=== PATIENT | male | born 1975 | race Caucasian/White ===

== ENCOUNTER 2017-01-18 16:52 | Emergency (ER) | payer SELFPAY ==
--- NOTE | 2017-01-18 17:33 | ER Document Report ---
ED Medical Screen (RME) - General Chief Complaint: Abdominal Pain Stated Complaint: ABDOMINAL PAIN Time Seen by Provider: 01/18/17 17:32 Notes: Patient states that he has had several urinary tract infections in the last several years. He states she has time they present with lower abdominal pain and blood in the urine. He states he now has no same symptoms for the last couple of days. He states he has seen a urologist with an unremarkable workup. However patient denies cystoscopy. Patient states they were not able to give him a reason why he gets repeat urinary tract infections. TRAVEL OUTSIDE OF THE [place] IN LAST 30 DAYS: No - Related Data Allergies/Adverse Reactions: No Known Allergies Allergy (Verified 01/18/17 16:57) Home Medications: Current Home Medications No Home Medications 01/18/17 [History] Past Medical History - Social History Chew tobacco use (# tins/day): No Frequency of alcohol use: Occasional Drug Abuse: None Renal/ Medical History: Denies: Hx Peritoneal Dialysis Physical Exam - Vital signs Vitals: Temp Pulse Resp Pulse Ox 98.1 F 103 H 12 98 01/18/17 16:57 01/18/17 16:57 01/18/17 16:57 01/18/17 16:57 Course - Vital Signs Vital signs: Temp Pulse Resp BP Pulse Ox 98.1 F 103 H 12 98 01/18/17 16:57 01/18/17 16:57 01/18/17 16:57 01/18/17 16:57
[2017-01-18 18:36] LABS: ABSOLUTE BASOPHILS # (AUTO) 0.1 10^3/uL (0.0-0.2); ABSOLUTE EOSINOPHILS # (AUTO) 0.3 10^3/uL (0.0-0.6); ABSOLUTE LYMPHOCYTES (AUTO) 2.6 10^3/uL (0.5-4.7); ABSOLUTE MONOCYTES (AUTO) 1.3 10^3/uL (0.1-1.4); ABSOLUTE NEUT (AUTO) 6.8 10^3/uL (1.7-8.2); BASOPHILS % (AUTO) 1.3 % (0-2); EOSINOPHILS % (AUTO) 2.5 % (0-6); HEMATOCRIT 44.9 % (37.9-51.0); HEMOGLOBIN 15.8 g/dL (13.5-17.0); HGB HCT DIFFERENCE 2.5; MEAN CORPUSCULAR HEMOGLOBIN 30.8 pg (27.0-33.4); MEAN CORPUSCULAR HGB CONC 35.3 g/dL (32.0-36.0); MEAN CORPUSCULAR VOLUME 87 fl (80-97); MONOCYTES % (AUTO) 11.7 % (3-13); RED BLOOD COUNT 5.14 10^6/uL (4.35-5.55); RED CELL DISTRIBUTION WIDTH 14.3 % (11.5-14.0); SEGMENTED NEUTROPHILS % (AUTO) 61.5 % (42-78); WHITE BLOOD COUNT 11.1 10^3/uL (4.0-10.5)
[2017-01-18 18:56] LABS: APPEARANCE,URINE CLEAR; BILIRUBIN,URINE NEGATIVE (NEGATIVE); GLUCOSE, URINE NEGATIVE (NEGATIVE); KETONES,URINE NEGATIVE (NEGATIVE); LEUKOCYTE ESTERASE,URINE TRACE (NEGATIVE); NITRITE,URINE NEGATIVE (NEGATIVE); PROTEIN,URINE NEGATIVE (NEGATIVE); URINE SPECIFIC GRAVITY 1.002; UROBILINOGEN,URINE NEGATIVE mg/dL (<2.0)
[2017-01-18 19:03] LABS: ALANINE AMINOTRANSFERASE 45 U/L (21-72); ALKALINE PHOSPHATASE 58 U/L (38-126); ANION GAP 15 (5-19); ASPARTATE AMINO TRANSFERASE 23 U/L (17-59); BILIRUBIN,DIRECT 0.4 mg/dL (0.0-0.4); BILIRUBIN,TOTAL 0.5 mg/dL (0.2-1.3); BLOOD UREA NITROGEN 11 mg/dL (7-20); CALCIUM 9.4 mg/dL (8.4-10.2); CARBON DIOXIDE 26 mmol/L (22-30); CHLORIDE 104 mmol/L (98-107); CREATININE RESULT 1.07 mg/dL (0.52-1.25); GLUCOSE 81 mg/dL (75-110); POTASSIUM 3.9 mmol/L (3.6-5.0); SODIUM 144.8 mmol/L (137-145); TOTAL PROTEIN 8.3 g/dL (6.3-8.2)
--- NOTE | 2017-01-18 20:05 | ER Document Report ---
ED GI/ - General Chief Complaint: Abdominal Pain Stated Complaint: ABDOMINAL PAIN Time Seen by Provider: 01/18/17 17:32 Mode of Arrival: Ambulatory Information source: Patient Notes: 41 year old male presents to ED today with concerns of intermittent left lower and suprapubic abdominal pain and blood "clots" in his urine. Patient reports this has been a chronic issue for the past 2 years, with intermittent flares of symptoms and complete resolution of symptoms between flares. Flares occur approximately every 4 months. Patient reports symptoms have been evaluated by PCM, GI specialist, and Urologist, and multiple imaging, including U/S, CT, and MRI, has been completed with unremarkable results. Further testing including colonoscopy and cystoscopy recommended but not yet completed. Patient reports previous treatment by Urologist, approximately one year ago, for a "kidney or bladder infection." Patient admits he was supposed to follow up with GI and Urologist, but was unable to due to financial and insurance issues. PCM has been managing intermittent pain flares with Percocet, last episode a few months ago. Patient had an appointment earlier today with PCM, but cancelled appointment and decided to come to ED for evaluation for financial reasons. Endorses associated symptoms of urinary urgency and mild nausea, but reports tolerating liquids and a bland diet. Denies associated symptoms including burning with urination, urinary frequency, incontinence, fever/chills, penile pain or discharge, vomiting, or back pain. Reports has been taking Ibuprofen 800 -1000mg every 4 to 6 hours, last dose today at 1500, with little relief. TRAVEL OUTSIDE OF THE [place] IN LAST 30 DAYS: No - Related Data Allergies/Adverse Reactions: No Known Allergies Allergy (Verified 01/18/17 16:57) Home Medications: Current Home Medications No Home Medications 01/18/17 [History] Past Medical History - General Information source: Patient - Social History Smoking Status: Current Every Day Smoker Chew tobacco use (# tins/day): No Frequency of alcohol use: Occasional Drug Abuse: None Family History: Other - Kidney Stones Patient has suicidal ideation: No Patient has homicidal ideation: No Renal/ Medical History: Denies: Hx Peritoneal Dialysis Review of Systems - Review of Systems Constitutional: See HPI EENT: No symptoms reported Cardiovascular: No symptoms reported Respiratory: No symptoms reported Gastrointestinal: See HPI Genitourinary: See HPI Male Genitourinary: No symptoms reported Musculoskeletal: No symptoms reported Skin: No symptoms reported Hematologic/Lymphatic: No symptoms reported Neurological/Psychological: No symptoms reported Physical Exam - Vital signs Vitals: Temp Pulse Resp Pulse Ox 98.1 F 103 H 12 98 01/18/17 16:57 01/18/17 16:57 01/18/17 16:57 01/18/17 16:57 - Notes Notes: PHYSICAL EXAMINATION: GENERAL: Well-appearing and in no acute distress. Alert, oriented, and cooperative with exam. HEAD: Atraumatic, normocephalic. LUNGS: CTAB and equal. No wheezes rales or rhonchi. HEART: Regular rate and rhythm without murmurs ABDOMEN: Soft, non distended, normoactive bowel sounds x 4. Mild tenderness noted on palpation of central and left sided suprapubic area, no guarding, no rebound GI/: No CVA tenderness EXTREMITIES: Normal range of motion. PSYCH: Normal mood, normal affect. SKIN: Warm, Dry, normal turgor Course - Re-evaluation Re-evalutation: Labwork today with WBCs slightly elevated at 11.1, trace leukocytes noted on Urinalysis. Patient currently hemodynamically stable and afebrile. [place] Narcotic Database reviewed - patient without previous encounters. As current symptoms are acute flare of chronic issue, with no new or worsening symptoms reported, will discharge home with short term dose of narcotic pain medication and strict follow up instructions and return precautions. - Vital Signs Vital signs: Temp Pulse Resp BP Pulse Ox 98.1 F 103 H 12 98 01/18/17 16:57 01/18/17 16:57 01/18/17 16:57 01/18/17 16:57 - Laboratory Result Diagrams: 01/18/17 17:55 01/18/17 17:55 Laboratory results interpreted by me: 01/18/17 01/18/17 01/18/17 17:41 17:55 17:55 WBC 11.1 H RDW 14.3 H Total Protein 8.3 H Ur Leukocyte Esterase TRACE H Discharge - Discharge Clinical Impression: Abdominal pain Qualifiers: Abdominal location: left lower quadrant Qualified Code(s): R10.32 - Left lower quadrant pain Condition: Stable Disposition: HOME, SELF-CARE Instructions: Abdominal Pain ([facility]), Oral Narcotic Medication ([facility]) Additional Instructions: You have been seen in the Emergency Department (ED) for abdominal pain. Your evaluation did not identify a clear cause of your symptoms but was generally reassuring. Follow up with Primary Care Provider tomorrow regarding today's emergent visit and the symptoms that are bothering you. Additionally, contact Dr. Abdi (GI) and Dr. Lozada (Urology) for follow up appointments, now that insurance is reactivated. Return to the ED for new or worsening symptoms, including if your abdominal pain worsens or fails to improve, you develop vomiting, diarrhea, you are unable to tolerate fluids due to vomiting, fever greater than 101, or other symptoms that concern you. Forms: Return to Work, Smoking Cessation Education Referrals: AMEYA LUCIANO DO [Primary Care Provider] - Follow up as needed
[2017-01-18] MEDS ORDERED: HYDROCODONE/ACETAMINOPHEN 5-325 MG 6 TAB/DSPK PO PRN (20:13)
== END 2017-01-18 20:51 | disposition home or self-care (01) ==
LOC: ER 16:52
DX: R10.32 Left lower quadrant pain (principal); R31.0 Gross hematuria; R39.15 Urgency of urination; R11.0 Nausea; F17.200 Nicotine dependence, unspecified, uncomplicated; D72.829 Elevated white blood cell count, unspecified
CPT/HCPCS: 36415; 80053; 81001; 85025; 99284

== ENCOUNTER 2018-01-11 14:26 | Emergency (ER) | payer SELFPAY ==
[2018-01-11 14:32] VITALS: BP 134/73
[2018-01-11] MEDS ORDERED: IBUPROFEN 800 MG TABLET PO ONE (15:34)
[2018-01-11] MEDS ORDERED: CEPHALEXIN 500 MG CAPSULE PO ONE (15:34)
--- NOTE | 2018-01-11 15:47 | ER Document Report ---
ED Hand/Wrist Injury - General Chief Complaint: Finger Injury Stated Complaint: THUMB PAIN Time Seen by Provider: 01/11/18 15:32 Mode of Arrival: Ambulatory Information source: Patient Notes: Chief complaint: Right thumb swelling History of complain:( obtained from----patient) 42 years old male was injured his right thumb about 3 4 days ago now developed swelling and yellow discoloration of the palmar surface. No fever chills or other constitutional symptoms Onset: As above Duration: Prior to arrival Severity: Mild Quality: Sharp Context: As described above Exacerbating factor and relieving factors: REVIEW OF SYSTEMS: CONSTITUTIONAL : Denies fever, chills, or sweats. Denies recent illness. EENT: Denies eye, ear, throat, or mouth pain or symptoms. Denies nasal or sinus congestion or discharge. Denies throat, tongue, or mouth swelling or difficulty swallowing. CARDIOVASCULAR: Denies chest pain. Denies palpitations or racing or irregular heart beat. Denies ankle edema. RESPIRATORY: Denies cough, cold, or chest congestion. Denies shortness of breath, difficulty breathing, or wheezing. GASTROINTESTINAL: Denies distention. Denies nausea, vomiting, or diarrhea. Denies blood in vomitus, stools, or per rectum. Denies black, tarry stools. Denies constipation. GENITOURINARY: Denies difficulty urinating, painful urination, burning, frequency, blood in urine, or discharge. FEMALE GENITOURINARY: Denies vaginal bleeding, heavy or abnormal periods, irregular periods. Denies vaginal discharge or odor. MUSCULOSKELETAL: Denies back or neck pain or stiffness. Denies joint pain or swelling. SKIN: Denies rash, lesions or sores. HEMATOLOGIC : Denies easy bruising or bleeding. LYMPHATIC: Denies swollen, enlarged glands. NEUROLOGICAL: Denies confusion or altered mental status. Denies passing out or loss of consciousness. Denies dizziness or lightheadedness. Denies headache. Denies weakness or paralysis or loss of use of either side. Denies problems with gait or speech. Denies sensory loss, numbness, or tingling. Denies seizures. PSYCHIATRIC: Denies anxiety or stress. Denies depression, suicidal ideation, or homicidal ideation. ALL OTHER SYSTEMS REVIEWED AND NEGATIVE. PHYSICAL EXAMINATION: GENERAL: Well-appearing, well-nourished and in no acute distress. HEAD: Atraumatic, normocephalic. EYES: Pupils equal round and reactive to light, extraocular movements intact, conjunctiva are normal. ENT: Nares patent, oropharynx clear without exudates. Moist mucous membranes. NECK: Normal range of motion, supple without lymphadenopathy LUNGS: Breath sounds clear to auscultation bilaterally and equal. No wheezes rales or rhonchi. HEART: Regular rate and rhythm without murmurs ABDOMEN: Soft, nontender, nondistended abdomen. No guarding, no rebound. No masses appreciated. Examination of genitals-deferred Musculoskeletal: Normal range of motion, no pitting or edema. No cyanosis. Examination of the right thumb shows slight swelling over the palmar surface of the distal phalanx, with central whitish discoloration. NEUROLOGICAL: Cranial nerves grossly intact. Normal speech, normal gait. Normal sensory, motor exams PSYCH: Normal mood, normal affect. SKIN: Warm, Dry, normal turgor, no rashes or lesions noted. Dictation was performed using [employer] voice recognition software TRAVEL OUTSIDE OF THE [place] IN LAST 30 DAYS: No - HPI Notes: Dictated - Related Data Allergies/Adverse Reactions: No Known Allergies Allergy (Verified 01/11/18 14:28) Past Medical History - Social History Smoking Status: Never Smoker Chew tobacco use (# tins/day): No Frequency of alcohol use: None Drug Abuse: None Lives with: Family Family History: Reviewed & Not Pertinent, Other - Kidney Stones Patient has suicidal ideation: No Patient has homicidal ideation: No Renal/ Medical History: Denies: Hx Peritoneal Dialysis Review of Systems - Review of Systems Notes: Dictated Physical Exam - Vital signs Vitals: Temp Pulse Resp BP Pulse Ox 98.1 F 88 16 134/73 H 95 01/11/18 14:31 01/11/18 14:31 01/11/18 14:31 01/11/18 14:31 01/11/18 14:31 - Notes Notes: Dictated Course - Vital Signs Vital signs: Temp Pulse Resp BP Pulse Ox 98.1 F 88 16 134/73 H 95 01/11/18 14:31 01/11/18 14:31 01/11/18 14:31 01/11/18 14:31 01/11/18 14:31 Discharge - Discharge Clinical Impression: Cellulitis of thumb, right Condition: Fair Instructions: Cellulitis ([facility]) Prescriptions: Cephalexin Monohydrate [Keflex 500 mg Capsule] 500 mg PO Q6H 10 Days capsule Referrals: AMEYA LUCIANO DO [Primary Care Provider] - Follow up as needed
== END 2018-01-11 15:50 | disposition home or self-care (01) ==
LOC: ER 14:26
DX: L03.011 Cellulitis of right finger (principal)
CPT/HCPCS: 87070; 87077; 87186; 87205; 99283

== ENCOUNTER → 2018-10-22 | Outpatient (CLI) | payer MEDICAID | LOC: OD 15:36 | PROVIDERS: ATTEND Nurse Practitioner Acute Care | DX: M54.5 Low back pain (principal) | CPT/HCPCS: 87086; 87088; 87186 ==

== ENCOUNTER → 2019-02-04 | Outpatient (CLI) | payer MEDICAID ==
--- NOTE | 2019-02-04 14:00 | RADIOLOGY REPORT (SQ) ---
EXAM DESCRIPTION: HAND LEFT 3 VIEWS; WRIST LEFT 3 VIEWS COMPLETED DATE/TIME: 02/04/2019 1:37 pm REASON FOR STUDY: LEFT HAND/WRIST PAIN; S/P TRAUMA; BEAM FELL ON IT; PAIN IN LEFT HAND M79.642 PAIN IN LEFT HAND COMPARISON: None. EXAM PARAMETERS: NUMBER OF VIEWS: Three views. TECHNIQUE: AP, lateral and oblique radiographic images acquired of the left hand. LIMITATIONS: None. FINDINGS: MINERALIZATION: Normal. BONES: No acute fracture or dislocation. No worrisome bone lesions. Mild degenerative changes with osteophytosis and subchondral sclerosis at the 1st carpometacarpal joint. JOINTS: No effusions. SOFT TISSUES: Punctate radiodensity overlying the soft tissues along the radial aspect of the 2nd pro ximal phalanx. Mild soft tissue swelling about the hand. OTHER: No other significant finding. IMPRESSION: 1. No evidence of acute bony abnormality. 2. Punctate radiodensity overlying the soft tissues along the radial aspect of the 2nd proximal phal anx most compatible foreign body. TECHNICAL DOCUMENTATION: JOB ID: [id number] [employer]- All Rights Reserved Reading location - IP/workstation name: [email or web address]
--- NOTE | 2019-02-04 14:00 | RADIOLOGY REPORT (SQ) ---
EXAM DESCRIPTION: HAND LEFT 3 VIEWS; WRIST LEFT 3 VIEWS COMPLETED DATE/TIME: 02/04/2019 1:37 pm REASON FOR STUDY: LEFT HAND/WRIST PAIN; S/P TRAUMA; BEAM FELL ON IT; PAIN IN LEFT HAND M79.642 PAIN IN LEFT HAND COMPARISON: None. EXAM PARAMETERS: NUMBER OF VIEWS: Three views. TECHNIQUE: AP, lateral and oblique radiographic images acquired of the left hand. LIMITATIONS: None. FINDINGS: MINERALIZATION: Normal. BONES: No acute fracture or dislocation. No worrisome bone lesions. Mild degenerative changes with osteophytosis and subchondral sclerosis at the 1st carpometacarpal joint. JOINTS: No effusions. SOFT TISSUES: Punctate radiodensity overlying the soft tissues along the radial aspect of the 2nd pro ximal phalanx. Mild soft tissue swelling about the hand. OTHER: No other significant finding. IMPRESSION: 1. No evidence of acute bony abnormality. 2. Punctate radiodensity overlying the soft tissues along the radial aspect of the 2nd proximal phal anx most compatible foreign body. TECHNICAL DOCUMENTATION: JOB ID: [id number] [employer]- All Rights Reserved Reading location - IP/workstation name: [email or web address]
== END ==
LOC: OD 12:48
PROVIDERS: ATTEND Internal Medicine
DX: M79.5 Residual foreign body in soft tissue (principal); M79.642 Pain in left hand; M79.89 Other specified soft tissue disorders

== ENCOUNTER 2019-10-20 12:45 | Emergency (ER) | payer MEDICAID ==
[2019-10-20] MEDS ORDERED: HYDROCODONE/ACETAMINOPHEN 5-325 MG TABLET PO ONE (13:42)
--- NOTE | 2019-10-20 13:47 | ER Document Report ---
ED Extremity Problem, Lower - General Chief Complaint: Knee Injury Stated Complaint: FALL,RIGHT KNEE PAIN Time Seen by Provider: 10/20/19 13:38 Primary Care Provider: SARABJIT RITTER DO [Primary Care Provider] - Follow up as needed Mode of Arrival: Ambulatory Information source: Patient Notes: 44-year-old male presented to ED for complaint of right knee and left hand pain. He states he fell walking down the stairs on Monday. He states he missed the last 2 steps fell on his right knee and left hand. He states he has been taking ibuprofen 800 mg every 4-6 hours and is not having any relief so his fianc and kids convinced him to come to the emergency room. He states he does smoke 3 to 4 cigarettes a day does not drink or do any drugs. He does have a history of high blood pressure. REVIEW OF SYSTEMS: CONSTITUTIONAL : Denies fever, chills, or sweats. Denies recent illness. EENT: Denies eye, ear, throat, or mouth pain or symptoms. Denies nasal or sinus congestion. CARDIOVASCULAR: Denies chest pain. RESPIRATORY: Denies cough, cold, or chest congestion. Denies shortness of breath, difficulty breathing, or wheezing. GASTROINTESTINAL: Denies abdominal pain. Denies nausea, vomiting, or diarrhea. Denies constipation. Last BM: GENITOURINARY: Denies difficulty urinating, painful urination, burning, frequency, or blood in urine. FEMALE GENITOURINARY: Denies vaginal bleeding, abnormal or irregular periods. LMP: MUSCULOSKELETAL: Pain to right knee and left hand after injury SKIN: Denies rash or skin lesions. HEMATOLOGIC : Denies easy bruising or bleeding. LYMPHATIC: Denies swollen, enlarged glands. NEUROLOGICAL: Denies altered mental status or loss of consciousness. Denies headache. Denies weakness or paralysis or loss of use of either side. Denies problems with gait or speech. Denies sensory or motor loss. PSYCHIATRIC: Denies anxiety or stress or depression. ALL OTHER SYSTEMS REVIEWED AND NEGATIVE. VITAL SIGNS: Blood pressure 180/95 GENERAL: No acute distress, non-toxic appearance. HEAD: Normal with no signs of head trauma. EYES: PERRLA, EOMI, conjunctiva normal, no discharge. EARS: Hearing grossly intact. NOSE: Normal. THROAT: Oropharynx is normal. NECK: Normal range of motion, no tenderness, supple, no lymphadenopathy, No adenopathy, no JVD. CHEST: Clear breath sounds bilaterally. No wheezes, rales, or rhonchi. CARDIAC: Regular rate and rhythm. S1 and S2, without murmurs, gallops, or rubs. VASCULAR: No Edema. Peripheral pulses normal and equal in all extremities. ABDOMEN: Normal and soft with no tenderness, no masses or pulsatile masses. GASTROINTESTINAL: Bowel sounds normal GENITOURINARY: Normal, No tenderness LYMPATHTIC: No lymphadenopathy noted. MUSCULOSKELETAL: Pain and swelling to the right knee. Left tendon intact has range of motion. Is able to walk but is painful, left hand swollen painful to the third finger not able to bend fully. We will get x-ray of right knee and left hand NEUROLOGICAL: Alert and oriented x 3. No focal sensory or strength deficits. Speech normal. Follows commands appropriately. PSYCHIATRIC: Normal Affect, judgement and mood. SKIN: Normal appearance with no rashes or lesions. TRAVEL OUTSIDE OF THE [place] IN LAST 30 DAYS: No - Related Data Allergies/Adverse Reactions: No Known Allergies Allergy (Verified 01/11/18 14:28) Past Medical History - General Information source: Patient - Social History Smoking Status: Current Every Day Smoker Cigarette use (# per day): Yes - 3 to 4 cigarettes a day and vape Frequency of alcohol use: None Drug Abuse: None Occupation: Self-employed construction Lives with: Family Family History: Reviewed & Not Pertinent, Other - Kidney Stones - Past Medical History Cardiac Medical History: Reports: Hx Hypertension Pulmonary Medical History: Reports: None EENT Medical History: Reports: None Neurological Medical History: Reports: None Endocrine Medical History: Reports: None Renal/ Medical History: Reports: None Malignancy Medical History: Reports None GI Medical History: Reports: None Musculoskeletal Medical History: Reports Hx Musculoskeletal Trauma Skin Medical History: Reports None Psychiatric Medical History: Reports: None Traumatic Medical History: Reports: None Infectious Medical History: Reports: None Surgical Hx: Negative Past Surgical History: Reports: None Physical Exam - Vital signs Vitals: Temp Pulse Resp BP Pulse Ox 98.5 F 114 H 18 180/95 H 99 10/20/19 12:50 10/20/19 12:50 10/20/19 12:50 10/20/19 12:50 10/20/19 12:50 Course - Re-evaluation Re-evalutation: 10/20/19 22:07 X-rays discussed with patient and written report of x-rays given to patient. Patient was treated with a knee immobilizer for his pain and swelling and given a [place] dispense pack for his pain. He was instructed to please follow-up with orthopedics. He was given the name and number of orthopedics for follow-up. Warren mac was discharged home after he verbalized understanding and agreement with treatment plan. - Vital Signs Vital signs: Temp Pulse Resp BP Pulse Ox 98.5 F 106 H 18 153/80 H 96 10/20/19 15:20 10/20/19 15:20 10/20/19 15:20 10/20/19 15:20 10/20/19 15:20 - Diagnostic Test Radiology reviewed: Image reviewed, Reports reviewed Procedures - Immobilization Right Knee Time completed: 15:29 Pre-Proc Neuro Vasc Exam: Normal Immobilizer type: Knee immobilizer Performed by: PCT Post-Proc Neuro Vasc Exam: Normal Alignment checked and good: Yes Discharge - Discharge Clinical Impression: Effusion, right knee Right knee injury Qualifiers: Encounter type: initial encounter Qualified Code(s): S89.91XA - Unspecified injury of right lower leg, initial encounter Fall Qualifiers: Encounter type: initial encounter Qualified Code(s): W19.XXXA - Unspecified fall, initial encounter Contusion of left hand Qualifiers: Encounter type: initial encounter Qualified Code(s): S60.222A - Contusion of left hand, initial encounter Condition: Stable Disposition: HOME, SELF-CARE Additional Instructions: CONTUSION: Your injury has resulted in a contusion -- a crushing of the deep tissues. No injury to important structures was detected during the physician's exam. Contusions vary in the amount of pain they cause, and in the length of time required for healing. Typically, the area will become bruised, and will remain painful to touch for two or three weeks. However, most patients are back to working and playing within a few days. After the initial period of rest and cold-packs, your symptoms (together with the doctor's recommendations) will determine how rapidly you can get back to full activity. Usually this means "do what feels okay, but don't do things that hurt." If re-examination was recommended, it's important to follow up as instructed. Call the doctor or return any time if pain increases, if swelling becomes severe, if you develop numbness or weakness in an injured extremity, or if any other alarming symptoms occur. SUSPECTED INTERNAL KNEE INJURY: The examiner of your injured knee suspects an internal injury to the cartilage or internal ligaments. This must be further investigated by an crm specialist. The knee should be protected, ice packed, and elevated while awaiting your follow-up exam by the orthopedist. If there is severe swelling, severe pain, or any new symptoms while awaiting your exam, you should call the orthopedist. (If he/she is unavailable, call us or return for re-examination.) KNEE IMMOBILIZING SPLINT: The knee immobilizing splint will protect the injury while healing begins. This type of splint does not allow the knee to bend at all. No running or sports will be possible. If the splint allows painfree walking, it's giving adequate protection. If there is still significant pain, crutches may be needed as well. Don't do an ything that hurts. Adjusted the splint, if necessary. The stiffeners on the sides are attached with Velcro, so they can be easily moved to adjust for thigh and calf size. If you need help with these adjustments, come back. You will lose muscle strength in the thigh while using this splint. The doctor will advise you if it's safe to do isometric knee exercises while you use it. USE OF CRUTCHES: The doctor has recommended that you not bear weight at this time. You will need to use crutches. Adjust the crutches so the tops come to about two inches under the armpit while you are standing upright. Use your hands -- not your armpits -- to support your weight. To get into a chair, support yourself with one crutch on the injured side. Hold the chair with the other hand, then lower yourself while putting all your weight on the good leg. Going up stairs is `good leg up, step up, then bring up crutches and bad leg.' Down stairs is `bad leg and crutches down, then bring good leg down.' If you develop numbness or swelling in an arm or hand, you are using the crutches incorrectly. Return if you are having any problems with the crutches. ODELL WRAP: A compression dressing (odell wrap) has been placed. This helps hold the area still. It limits swelling and internal bleeding. The wrap should be comfortably snug -- not tight. You should feel a sense of pressure, but not severe pain under the wrap. Unless the physician tells you otherwise, you can adjust the wrap for comfort. If the wrap causes symptoms suggesting it's too tight -- uncomfortable pressure, swelling or discoloration beyond the wrap, numbness, or severe pain -- you must loosen the wrap. If these symptoms don't resolve promptly, return for re-evaluation. ICE & ELEVATION: Apply ice packs frequently against the painful area. Many different schedules are recommended, such as "20 minutes on, 20 minutes off" or "one hour ice, two hours rest." If you need to work, you may need to go longer between ice treatments. You should plan to have the area ice packed AT LEAST one-fourth of the time. The ice should be applied over the wrap, tape, or splint, or over a layer of cloth -- not directly against the skin. Some ice bags have a built-in cloth and can be put directly on the skin. Your injured part should be elevated as much as possible over the next 48 hours. Try to keep the injury above the level of the heart. Avoid use of the injured area. Elevation and rest will decrease the swelling. USE OF [id number] IBUPROFEN: Ibuprofen (Advil, Nuprin, Medipren, Motrin IB) is a medication for fever and pain control. In addition, it has anti- inflammatory effects which may be beneficial, especially in the treatment of injuries. It's best to take ibuprofen with food. Persons with ulcer disease or allergy to aspirin should notify their physician of this before taking ibuprofen. Ibuprofen can be given every four to six hours, for a total of four doses daily. Age Pain or fever dose Antiinflammatory dose 6-8 yr 200 mg (1 tab) 200 mg (1 tab) 9-11 yr 200 mg (1 tab) 200-400 mg (1-2 tab) 11-14 yr 200-400 mg (1-2 tab) 400 mg (2 tab) 15-adult 400 mg (2 tab) 600 mg (3 tab) ORAL NARCOTIC MEDICATION: You have been given a norco disp pack for pain control. This medication is a narcotic. It's best taken with food, as nausea can result if taken on an empty stomach. Don't operate machinery or drive within six hours of taking this medication. Do not combine this medicine with alcohol, or with any medication which can cause sedation (such as cold tablets or sleeping pills) unless you get permission from the physician. Narcotics tend to cause constipation. If possible, drink plenty of fluids and eat a diet high in fiber and fruits. Please be aware that prescription narcotics also have the potential for abuse. People become addicted to these medications because of the general sense of wellbeing that they induce. This feeling along with a significant reduction in tension, anxiety, and aggression provides a stimulating seductive quality to these drugs. Once your pain is under control, we encourage you to discard your unused narcotics. FOLLOW-UP CARE: If you have been referred to a physician for follow-up care, call the physicians office for an appointment as you were instructed or within the next two days. If you experience worsening or a significant change in your symptoms, notify the physician immediately or return to the Emergency Department at any time for re-evaluation. Forms: Elevated Blood Pressure, Smoking Cessation Education Referrals: SARABJIT RITTER, [Primary Care Provider] - Follow up as needed
--- NOTE | 2019-10-20 15:04 | RADIOLOGY REPORT (SQ) ---
EXAM DESCRIPTION: HAND LEFT 3 VIEWS IMAGES COMPLETED DATE/TIME: 10/20/2019 2:00 pm REASON FOR STUDY: Fall Monday pain in right knee and left hand COMPARISON: None. EXAM PARAMETERS: NUMBER OF VIEWS: Three views. TECHNIQUE: AP, lateral and oblique radiographic images acquired of the left hand. LIMITATIONS: None. FINDINGS: MINERALIZATION: Normal. BONES: No acute fracture or dislocation. No worrisome bone lesions. JOINTS: No effusions. SOFT TISSUES: Radiodensity adjacent to the seconds metacarpal. Not the site of injury. OTHER: No other significant finding. IMPRESSION: No acute fracture. TECHNICAL DOCUMENTATION: JOB ID: [id number] 2010 [employer]- All Rights Reserved Reading location - IP/workstation name: [email or web address]
--- NOTE | 2019-10-20 15:05 | RADIOLOGY REPORT (SQ) ---
EXAM DESCRIPTION: KNEE RIGHT 4 VIEWS IMAGES COMPLETED DATE/TIME: 10/20/2019 2:00 pm REASON FOR STUDY: Fall Monday pain in right knee and left hand COMPARISON: None. NUMBER OF VIEWS: Four views. TECHNIQUE: AP, lateral, and both oblique radiographic images acquired of the right knee. LIMITATIONS: None. FINDINGS: MINERALIZATION: Normal. BONES: No definitive fracture. Some degenerative type changes identified patella. JOINT: Joint effusion. SOFT TISSUES: No soft tissue swelling. No radio-opaque foreign body. OTHER: No other significant finding. IMPRESSION: No acute fracture. Degenerative changes of the patella. Joint effusion. TECHNICAL DOCUMENTATION: JOB ID: [id number] 2010 [email or web address]- All Rights Reserved Reading location - IP/workstation name: [email or web address]
[2019-10-20 15:21] VITALS: BP 153/80
[2019-10-20] MEDS ORDERED: HYDROCODONE/ACETAMINOPHEN 5-325 MG (6 TAB/ER DISP) PO PRN (15:21)
== END 2019-10-20 15:29 | disposition home or self-care (01) ==
LOC: ER 12:45
DX: S60.222A Contusion of left hand, initial encounter (principal); S89.91XA Unspecified injury of right lower leg, initial encounter; I10 Essential (primary) hypertension; M25.561 Pain in right knee; M79.642 Pain in left hand; W10.9XXA Fall (on) (from) unspecified stairs and steps, initial encounter; F17.210 Nicotine dependence, cigarettes, uncomplicated; M25.461 Effusion, right knee
CPT/HCPCS: 99283